=== PATIENT | female | born 1940 | race Caucasian/White ===

== ENCOUNTER 2019-09-19 13:56 | Observation (INO) | payer MEDICARE, OTHER ==
--- NOTE | 2019-09-19 14:22 | ED.PDOC ---
History of Present Illness - General Chief Complaint: Chest Pain/IL Time Seen by Provider: 09/19/19 14:21 Source: patient Exam Limitations: no limitations - History of Present Illness Initial Comments: 79 yo F who presents for L sided chest pain that onset at 2:30am, lasted for thirty minutes, no episodes since that time, described as sharp for a moment and then dull ache, radiated up to jaw and neck. Cardiac workup two years ago with echo and stress was unremarkable per pt. Denies associated f/c, cough, congestion, diaphoresis, SOB, abd pain, n/v/d, edema. No hx of IL, DVT, PE. Allergies/Adverse Reactions: Allergies Codeine Allergy (Verified 09/19/19 14:12) Morphine Allergy (Verified 09/19/19 14:12) Prochlorperazine [From Compazine] Allergy (Verified 09/19/19 14:12) Home Medications: Ambulatory Orders Atenolol [Tenormin] 25 mg PO BEDTIME 09/19/19 Debi Aspirin 81 mg PO BEDTIME 09/19/19 Ezetimibe 10 mg PO DAILY 09/19/19 Febuxostat 40 mg PO DAILY 09/19/19 Levothyroxine Sodium 50 mcg PO DAILY 09/19/19 Multi Complete 1,000 mg PO DAILY 09/19/19 Nexium 20 mg PO PRN 09/19/19 Potassium Chloride [Potassium Chloride ER] 20 meq PO BEDTIME 09/19/19 Tolterodine Tartrate ER 4 mg PO BID 09/19/19 Triamterene 75 mg PO BEDTIME 09/19/19 Venlafaxine HCl 50 mg PO BID 09/19/19 Review of Systems - Review of Systems Constitutional: Denies: chills, fever EENTM: Denies: nose congestion, throat pain Respiratory: Denies: cough, orthopnea, short of breath, stridor, wheezing Cardiology: States: chest pain. Denies: edema, palpitations, syncope Gastrointestinal/Abdominal: Denies: abdominal pain, constipation, diarrhea, nausea, vomiting Genitourinary: Denies: dysuria, frequency Musculoskeletal: Denies: back pain, neck pain Skin: Denies: rash Neurological: Denies: headache, numbness, weakness Endocrine: Denies: increased thirst, increased urine Family Medical History - Family History Mother Family History: No Known Physical Exam - Physical Exam General Appearance: Alert, Well Developed, Well Nourished Eyes, Ears, Nose, Throat Exam: PERRL/EOMI, normal ENT inspection Neck: non-tender, full range of motion, supple, normal inspection Respiratory: chest non-tender, lungs clear, normal breath sounds, no respiratory distress, no accessory muscle use Cardiovascular/Chest: normal peripheral pulses, regular rate, rhythm, no edema, no gallop, no JVD, no murmur Peripheral Pulses: radial,right: 2+, radial,left: 2+ Gastrointestinal/Abdominal: normal bowel sounds, non tender, soft, no organomegaly, no pulsatile mass Extremity: normal range of motion, non-tender, normal inspection, no pedal edema Neurologic: no motor/sensory deficits, alert Skin Exam: normal color, warm/dry Progress - Progress Progress: 09/19/19 15:46 Pt HEART score is 5, will admit for CP rule out. Pt is well appearing, NAD. I nformed of plan, agrees, all questions and concerns addressed. 09/19/19 16:38 Discussed with ROCIO Conde, accepts for admission. Kayleigh Abrams MD Emergency Medicine Physician Billing Number [id number] - Results/Orders Results/Orders: 09/19/19 14:30 EKG STAT Laboratory Results - last 24 hr 09/19/19 09/19/19 09/19/19 14:35 14:35 14:35 WBC 5.1 RBC 4.30 Hgb 13.1 Hct 38.8 MCV 90.4 MCH 30.6 MCHC 33.8 RDW 13.9 Plt Count 229 MPV 7.6 Absolute Neuts (auto) 2.10 Absolute Lymphs (auto) 2.50 Absolute Monos (auto) 0.40 Absolute Eos (auto) 0.00 Absolute Basos (auto) 0.00 Neutrophils % 40.5 L Lymphocytes % 49.6 Monocytes % 8.5 Eosinophils % 0.6 L Basophils % 0.8 Sodium 138 Potassium 3.5 L Chloride 100 L Carbon Dioxide 24 Anion Gap 17.5 BUN 20 H Creatinine 0.99 BUN/Creatinine Ratio 20.2 H Random Glucose 164 H Serum Osmolality 281.9 Calcium 9.5 Total Bilirubin 1.2 H AST 40 ALT 29 Alkaline Phosphatase 63 Troponin I < 0.02 Serum Total Protein 6.8 Albumin 3.9 Globulin 2.9 Albumin/Globulin Ratio 1.3 CXR: EXAM DESCRIPTION: Chest,2 Views CLINICAL HISTORY: chest pain COMPARISON: None Available. TECHNIQUE: PA and lateral views of the chest FINDINGS: Mild calcific atherosclerosis of the thoracic aorta. Cardiac silhouette shows borderline cardiomegaly. Pulmonary vascularity is within normal limits. Subtle linear opacities in the bilateral lung bases most likely represent atelectasis. Underlying infiltrate cannot be entirely excluded, although felt less likely. Costophrenic angles are sharp. No pneumothorax. No acute osseous abnormality. IMPRESSION: 1. Borderline cardiomegaly without congestive heart failure. 2. Subtle linear opacities bilateral lung bases most likely represent atelectasis. Underlying infiltrate cannot be entirely excluded, although felt less likely. Electronically signed by: Florencio Longo MD 09/19/2019 3:02 PM FAMILY RESOURCE MANAGEMENT SPECIALIST - [id number] - EKG/XRAY/CT EKG: Sinus, nonspecific ST T wave Chg Departure - Departure Clinical Impression: Chest pain, unspecified Qualifiers: Chest pain type: unspecified Qualified Code(s): R07.9 - Chest pain, unspecified Time of Disposition: 15:48 Disposition: Admit Patient Condition: Fair Home Medications: Ambulatory Orders Atenolol [Tenormin] 25 mg PO BEDTIME 09/19/19 Debi Aspirin 81 mg PO BEDTIME 09/19/19 Ezetimibe 10 mg PO DAILY 09/19/19 Febuxostat 40 mg PO DAILY 09/19/19 Levothyroxine Sodium 50 mcg PO DAILY 09/19/19 Multi Complete 1,000 mg PO DAILY 09/19/19 Nexium 20 mg PO PRN 09/19/19 Potassium Chloride [Potassium Chloride ER] 20 meq PO BEDTIME 09/19/19 Tolterodine Tartrate ER 4 mg PO BID 09/19/19 Triamterene 75 mg PO BEDTIME 09/19/19 Venlafaxine HCl 50 mg PO BID 09/19/19
--- NOTE | 2019-09-19 15:03 | RAD ---
EXAM DESCRIPTION: Chest,2 Views CLINICAL HISTORY: chest pain COMPARISON: None Available. TECHNIQUE: PA and lateral views of the chest FINDINGS: Mild calcific atherosclerosis of the thoracic aorta. Cardiac silhouette shows borderline cardiomegaly. Pulmonary vascularity is within normal limits. Subtle linear opacities in the bilateral lung bases most likely represent atelectasis. Underlying infiltrate cannot be entirely excluded, although felt less likely. Costophrenic angles are sharp. No pneumothorax. No acute osseous abnormality. IMPRESSION: 1. Borderline cardiomegaly without congestive heart failure. 2. Subtle linear opacities bilateral lung bases most likely represent atelectasis. Underlying infiltrate cannot be entirely excluded, although felt less likely. Electronically signed by: Florencio Longo MD 09/19/2019 3:02 PM ACID LEVELER
[2019-09-19] MEDS ORDERED: ASPIRIN TABLET 325 MG TAB PO ONE (17:16)
[2019-09-19] MEDS ORDERED: NITROGLYCERIN 0.4 MG 25 EA TAB SL PRN (18:15)
[2019-09-19] MEDS ORDERED: SODIUM CHLORIDE 0.9% (FLUSH) 10 ML SYG IV PRN (18:15)
[2019-09-19] MEDS ORDERED: ACETAMINOPHEN 325 MG TAB PO PRN (18:15)
[2019-09-19] MEDS ORDERED: KCL 20MEQ/0.45% NS 1,000 ML IVS PRN (18:18)
[2019-09-19] MEDS ORDERED: IV SET AND CAP CHANGE INJ INJ SCH (18:30)
[2019-09-19] MEDS ORDERED: ATENOLOL 25 MG TAB ONE (20:32)
[2019-09-19] MEDS ORDERED: SODIUM CHL 0.9% 50ML MIN-BAG+ 50 ML IVPB ONE (20:52)
[2019-09-19] MEDS ORDERED: cefTRIAXone SODIUM 1 GM VIAL ONE (20:52)
[2019-09-19] MEDS ORDERED: POTASSIUM CHLORIDE 10 MEQ TAB PO ONE (20:52)
[2019-09-19] MEDS ORDERED: SODIUM CHLORIDE 0.9% (FLUSH) 10 ML SYG IV SCH (21:00)
[2019-09-19] MEDS ORDERED: ATENOLOL 25 MG TAB PO SCH (21:00)
[2019-09-19] MEDS ORDERED: VENLAFAXINE HCL 50 MG PO SCH (21:00)
[2019-09-19] MEDS ORDERED: BAYER ASPIRIN 81 MG PO SCH (21:00)
[2019-09-19] MEDS ORDERED: NON-FORMULARY MEDICATION 1 EA MIS (Potassium Chloride [Potassium Chloride Er] 20 MEQ) PO SCH (21:00)
[2019-09-19] MEDS ORDERED: ENOXAPARIN SODIUM 40 MG/0.4 ML SYG SUBCU SCH (21:00)
[2019-09-19] MEDS ORDERED: TRIAMTERENE PO SCH (21:00)
[2019-09-19] MEDS ORDERED: cefTRIAXone SODIUM 1 GM in SODIUM CHL 0.9% 50ML MIN-BAG+ 50 ML IVPB SCH (21:00)
[2019-09-19] MEDS ORDERED: TOLTERODINE TARTRATE 4 MG PO SCH (21:00)
[2019-09-20 01:35] VITALS: O2SAT 95
[2019-09-20] MEDS ORDERED: OMEPRAZOLE CAP 20 MG CAP PO ONE (02:18)
[2019-09-20 06:09] VITALS: BP 126/73; TEMP 97.8
[2019-09-20] MEDS ORDERED: LEVOTHYROXINE SODIUM 0.025 MG TAB ONE (08:44)
[2019-09-20] MEDS ORDERED: ASPIRIN TABLET 325 MG TAB PO SCH (09:00)
[2019-09-20] MEDS ORDERED: FEBUXOSTAT 40 MG PO SCH (09:00)
[2019-09-20] MEDS ORDERED: TOLTERODINE TARTRATE ER 4 MG CAP PO SCH (09:00)
[2019-09-20] MEDS ORDERED: LEVOTHYROXINE SODIUM 0.025 MG TAB PO SCH (09:00)
[2019-09-20] MEDS ORDERED: EZETIMIBE 10 MG TAB PO SCH (09:00)
--- NOTE | 2019-09-20 15:56 | SSS ---
SUPERVISING PHYSICIAN: Bernardo Reaves MD DATE OF ADMISSION: 09/19/19 DATE OF DISCHARGE: 09/20/19 CHIEF COMPLAINT: Chest pain. HISTORY OF PRESENT ILLNESS: Ms. West is a 71-year-old female patient who presented to the Emergency Room early yesterday morning after she went to see her primary care physician, Dr. Ballesteros, in the clinic and was referred to the Emergency Room for further evaluation after she noted she had had some chest pains in the middle of the night around 2 o'clock that reported as brief, sharp pain in the left side of the chest radiating up to her neck. She has had a stress test in the last several years that she notes was negative, but was concerned as the pain had radiated up into her neck. In the Emergency Room, she was hemodynamically stable. Vital signs stable showed blood pressure 136/81, heart rate 73, temperature 98.1, saturation 94% on room air. Initial laboratory studies did show troponin less than 0.02. CBC was unremarkable. Chemistry showed just mildly low potassium at 3.5. She notes she did take an aspirin and the pain dissipated, but due to the fact that it radiated, she wanted to be evaluated in the Emergency Room. Her EKG showed just a sinus rhythm with nonspecific ST wave changes, nothing indicating acute ischemia or acute injury pattern. She had no reports of chest pain while in the Emergency Room, however, she does have some risk factors. The Emergency Room physician requested the patient be placed in observation for further rule out. She was placed in observation in stable condition. PAST MEDICAL HISTORY: 1. Hypertension. 2. Depression. 3. Hypothyroidism. 4. Hypercholesterolemia. PAST SURGICAL HISTORY: 1. x4. 2. Total hysterectomy. HOME MEDICATIONS: 1. Hydrochlorothiazide 50 mg/triamterene 75 mg daily. 2. Prilosec [id number] 20 mg at bedtime. 3. Potassium chloride 20 mEq daily. 4. Febuxostat 40 mg daily. 5. Debi aspirin 81 mg daily. 6. Nexium 20 mg daily. 7. Levothyroxine 50 mcg daily. 8. Ezetimibe 10 mg daily. 9. Multi-complex vitamin daily. 10. Tolterodine tartrate 4 mg twice daily. 11. Venlafaxine 50 mg b.i.d. 12. Atenolol 25 mg at bedtime. ALLERGIES: CODEINE, MORPHINE, PROCHLORPERAZINE. FAMILY HISTORY: Mother at age 50 secondary to car accident. Father at age 58 due to cirrhosis of the liver. She has four sisters. One in her 60s due to blood clot. She has two other sisters diagnosed with breast cancer, one in her 50s, one her in 60s. The other one has multiple medical issues. She has one son who has diabetes mellitus, type 2. She has one daughter her has breast cancer diagnosed at 49. She has one daughter in her 60s who is healthy. SOCIAL HISTORY: The patient is a former smoker, but does not currently smoke. She drinks very seldom. When she does, it is just a beer. She is retired and lives in [place]. She is . She denies any illicit drug use. REVIEW OF SYSTEMS: CONSTITUTIONAL: Negative for any fevers, chills or general malaise. HEENT: Negative for sore throats, earaches, nasal congestion, vision changes. RESPIRATORY: Negative for shortness of breath, wheezing, coughing. CARDIOVASCULAR: As noted in history of present illness with short-lived substernal chest pain radiating to the left arm. Negative for palpitations or syncopal episodes. Pain resolved prior to admission to the hospital. GASTROINTESTINAL: Negative for nausea, vomiting, diarrhea, constipation or abdominal pain. GENITOURINARY: Negative for dysuria, hematuria, polyuria. NEUROLOGIC: Negative for ataxia, seizures, dizziness, syncopal episodes or other focal deficits. PHYSICAL EXAMINATION: VITAL SIGNS: On admission, temperature 98.1, pulse 82, blood pressure 136/81, respirations 20, saturation 94% on room air. On discharge, blood pressure was 126/73, saturation 95% on room air, afebrile at 97.8, heart rate 69. GENERAL: The patient appeared to be in no acute distress, she was resting comfortably, well-hydrated, well-nourished. HEENT: Tympanic membranes clear bilaterally. Oropharynx is pink, moist without any lesions. NECK: Supple, nontender with full range of motion. No jugular venous distention noted. RESPIRATORY: Lungs clear to auscultation bilaterally without any rhonchi, wheezes or rales. CARDIOVASCULAR: Regular rate and rhythm without any appreciable murmurs, gallops, or rubs. ABDOMEN: Obese, but soft, nontender. Positive bowel sounds. EXTREMITIES: There is no cyanosis, clubbing or edema. NEUROLOGIC: Cranial nerves II-XII are grossly intact. Facial features are symmetrical. Extraocular movements are within normal limits. There is no nystagmus noted. LABORATORY: CBC was within normal limits with white count 5,100 with no left shift. Chemistry just showed a mildly low potassium at 3.5, BUN 20, creatinine 0.9. She had four sets of troponins were all less than 0.02. Lipid panel showed triglycerides 278, cholesterol 180, LDL 95, HDL 40. Urinalysis did show positive nitrites with trace leukocyte esterase, 4+ bacteria, 1 to 3 epithelials, 1 to 3 RBCs, 1 to 3 WBCs. MICROBIOLOGY: Urine culture pending. RADIOLOGY: Chest x-ray in the Emergency Room per radiologic interpretation showed borderline cardiomegaly without congestive failure. There was note of several linear opacities in bilateral lung bases most likely representing atelectasis. 12-lead EKGs showed a sinus rhythm with nonspecific ST wave changes, but no indication of T-wave inversions or elevation to indicate ischemia or other injury patterns. No changes in EKGs from admission to discharge. HOSPITAL COURSE: Ms. West was admitted for extended rule out chest pain. She actually was admitted to the Medical/Surgical Floor without any reported chest pain which had actually resolved prior to her admission to the Emergency Room. She was on cardiac telemetry. She was given Lovenox. She was given an aspirin. She showed no change in her rhythm. She had no recurrence of chest pains or symptoms and felt stable enough to continue with outpatient management. ASSESSMENT: 1. Chest pain, rule out with all cardiac workup being negative, uncertain etiology, possibly related to just chest wall pain. 2. Urinary tract infection with cultures pending. 3. Mild electrolyte abnormality with hypokalemia, chronic, due to Lasix. 4. Hypertension, controlled. 5. Depression. 6. Hypothyroidism. 7. Hypercholesterolemia. PLAN: Ms. West was admitted and placed in observation for 24 hour rule out. She is discharged to followup with Dr. Ballesteros. She was treated for urinary tract infection with Rocephin. She will be continued on antibiotics with cefepime for total of 5 day treatment course. She is to resume her home medications as prior to hospitalization. Diet was to continue as tolerated. Activities as tolerated. No new prescriptions other than antibiotic were prescribed on discharge including Ceftin 500 mg q.12h. for 5 days, no refills. CONDITION ON DISCHARGE: Stable and improved. DISPOSITION: The patient is discharged home. #[id number] [facility]
[2019-09-20] MEDS ORDERED: POTASSIUM CHLORIDE 20 MEQ TAB PO SCH (21:00)
== END 2019-09-20 10:40 | disposition home or self-care (01) ==
LOC: ER 13:56 → MS 18:10
PROVIDERS: ADMIT Nurse Practitioner Family; ATTEND Nurse Practitioner Family
DX: R07.89 Other chest pain (principal); N39.0 Urinary tract infection, site not specified; B96.89 Other specified bacterial agents as the cause of diseases classified elsewhere; E87.6 Hypokalemia; T50.1X5A Adverse effect of loop [high-ceiling] diuretics, initial encounter; I11.9 Hypertensive heart disease without heart failure; F32.9 Major depressive disorder, single episode, unspecified; E03.9 Hypothyroidism, unspecified; E78.00 Pure hypercholesterolemia, unspecified; Z79.82 Long term (current) use of aspirin; Z79.890 Hormone replacement therapy; Z79.899 Other long term (current) drug therapy; Z88.6 Allergy status to analgesic agent; Z88.8 Allergy status to other drugs, medicaments and biological substances; Z87.891 Personal history of nicotine dependence; Z90.710 Acquired absence of both cervix and uterus; Z98.891 History of uterine scar from previous surgery; Z80.3 Family history of malignant neoplasm of breast; Z83.3 Family history of diabetes mellitus
CPT/HCPCS: 96374; 96375; 96372; J0696; J1650; J3480; J7050; 80053; 87086; 80061; 36415 ×2; 87077; 87186; 81001; 85025; 84484 ×4; 71046; 94760 ×2; 99285; 93005 ×2